=== PATIENT | female | born 1990 | race American Indian/Alaskan Native ===

== ENCOUNTER 2016-12-15 08:36 | Day surgery (SDC) | payer OTHER ==
[2016-12-15 08:56] VITALS: BMI 32.1
[2016-12-15 09:48] VITALS: O2SAT 100
[2016-12-15] MEDS ORDERED: Propofol 10 mg/ml Inj (20 ML) ONE (10:46)
[2016-12-15] MEDS ORDERED: Lactated Ringer's 500 ML IV SCH (11:00)
[2016-12-15 11:12] VITALS: TEMP 97.5
[2016-12-15 12:12] VITALS: BP 115/76; PULSE 68; RESP 14
== END 2016-12-15 12:05 | disposition home or self-care (01) ==
LOC: C.ENDO 08:36
PROVIDERS: ATTEND Internal Medicine
DX: K29.70 Gastritis, unspecified, without bleeding (principal); K44.9 Diaphragmatic hernia without obstruction or gangrene
CPT/HCPCS: 43239; 84703; 88305; J2704; J7120